=== PATIENT | female | born 1965 | race Caucasian/White ===

== ENCOUNTER 2017-05-27 21:25 | Emergency (ER) | payer BC ==
[2017-05-27 21:38] VITALS: BP 135/90
--- NOTE | 2017-05-27 22:21 | EDM.PDOC ---
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 Both procedures were performed at [facility]. About 2-3 months ago, the patient developed right breast pain, extending to her right neck, shoulder, and down her right upper extremity. This was made worse with various movements. Zehra Cortes is the patient's PCP, however, the patient also sees Dr. Garrett, an [employer] in [place]. The patient saw him on 04/29/2017. He referred the patient back to [facility]. The patient was then seen by Dr. Curry, a plastic surgeon, on 05/02/2017. Dr. Curyr felt that the patient's pain was due to the implants being placed underneath the pectoralis muscles, and he also felt there was a neuroma involved. He recommended surgery to replace the implants, replacing them over the pectoralis muscles, however, there was some delay in surgery due to a concern about hyperthyroidism. The patient states that her right neck, shoulder, and arm pain got worse about 2 weeks ago, especially if she were to bend forward. She saw a chiropractor, without relief. She spoke to Dr. Garrett on 05/10/2017, who ordered a MRI which the patient underwent on 05/11/2017, demonstrating a leaking right implant. The patient ultimately underwent replacement of the bilateral implants on 05/19/2017 at [facility]. She was discharged home on 05/21/2017 with prescriptions for Duricef and tramadol. She is scheduled to follow up on 07/25/2017 The patient states that both of the implants are of the same size, however, her left breast is larger. She is concerned about some ecchymosis to the anterior left breast, and about dark colored drainage from her left MATTHEW drain. She took photographs of her breast and sent them to Dr. Curry, who told her that he was concerned about a hematoma. He recommended that the patient come to the ED for an ultrasound to check for a hematoma, and if positive, the patient intends to drive to [facility] tomorrow to have the issue addressed. The patient is concerned that a hematoma could become infected, although she denies recent fever or purulent drainage. Treatments HEAD OF ICT: Reports: Acetaminophen Bilateral Breast Pain Score (Numeric/FACES): 6 - Related Data Allergies Allergy/AdvReac Type Severity Reaction Status Date / Time acetaminophen [From Percocet] Allergy Rash Verified 05/27/17 21:39 danazol Allergy Rash Verified 05/27/17 21:39 doxycycline Allergy Rash Verified 05/27/17 21:39 morphine Allergy Respiratory Verified 05/27/17 21:39 Distress oxycodone HCl [From Percocet] Allergy Rash Verified 05/27/17 21:39 Home Meds: Home Meds Acetaminophen [Tylenol Extra Strength] 500 mg PO Q6HR PRN 05/27/17 [History] Cefadroxil [Cefadroxil] 500 mg PO BID 05/27/17 [History] Diazepam [Valium] 5 mg PO QID 05/27/17 [History] Levothyroxine Sodium [Synthroid] 100 mcg PO ACBREAKFAST 05/27/17 [History] Sennosides/Docusate Sodium [Senna-Docusate Sodium] 1 each PO DAILY PRN 05/27/17 [History] traMADol [Ultram] 50 mg PO Q6H PRN 05/27/17 [History] Past Medical History EMERGENCY MEDICAL DISPATCHER History: Reports: Other (See Below) (pseudoangiomatous stromal hyperplasia (PASH)) Psychiatric History: Reports: Anxiety (untreated) Endocrine/Metabolic History: Reports: Hypothyroidism - Past Surgical History Female Surgical History: Reports: Breast Implant (bilateral 2005, revised ), Hysterectomy, Mastectomy, Oophorectomy Social & Family History - Family History Cardiac: Reports: Heart Failure, [place] - Tobacco Use Smoking Status *Q: Never Smoker Second Hand Smoke Exposure: No - Caffeine Use Caffeine Use: Reports: None Other Caffeine Use: rarely - Recreational Drug Use Recreational Drug Use: No ED ROS GENERAL - Review of Systems Review Of Systems: ROS reveals no pertinent complaints other than HPI. ED EXAM, GENERAL - Physical Exam Exam: See Below Exam Limited By: No Limitations General Appearance: Alert, WD/WN, No Apparent Distress Respiratory/Chest: Other (Surgical wounds bilateral breasts are clean, dy, and intact. Small amount of biliverdinous ecchymoses noted to the anterior left breast, and subtle depression to the lateral aspect of the left breast, suggesting underlying hematoma. No erythema or swelling to either breast. Approximately 1-2 ml dark liquefied hematoma present in the MATTHEW drain bulb.) Course - Vital Signs Last Recorded V/S: Last Vital Signs Temp 37.3 C 05/27/17 21:34 Pulse 84 05/27/17 21:34 Resp 18 05/27/17 21:34 BP 135/90 05/27/17 21:34 Pulse Ox 100 05/27/17 21:34 - Orders/Labs/Meds Orders: Active Orders 24 hr Category Date Time Status Breast Complete Lt [US] Stat Exams 05/27/17 22:11 Taken Meds: Medications Discontinued Medications Generic Name Dose Route Start Last Admin Trade Name Freq PRN Reason Stop Dose Admin Tramadol HCl 50 mg 05/27/17 22:25 05/27/17 22:29 Ultram PO 05/27/17 22:26 50 mg ONETIME ONE Administration - Re-Assessments/Exams Free Text/Narrative Re-Assessment/Exam: 05/27/17 22:12 The patient presents with a post bilateral breast reconstruction hematoma on the left. She states that the surgeon admissions manager rn at [facility] recommended that she come to the ED for an ultrasound to confirm a hematoma, and that if positive , that she would drive to [place] tomorrow to have it addressed. Clinically, the patient has a hematoma, and I will be very surprised if the ultrasound does not confirm that. The concern that I have, which I explained to the patient, is that, while certainly concerning to the patient, a postoperative hematoma is not an emergency, therefore an ultrasound to evaluate for it is not indicated from the ED. While it is true that a hematoma can get infected, there is no indication that the patient has an infection at this time - she does not report a history of fever or chills, is afebrile here in the ED, and while there is some mild ecchymosis to the anterior breast, there is no erythema or swelling suggestive of an infection. There is a small amount of dark liquefied blood in her MTATHEW drain, consistent with liquefaction of hematoma, but no purulence or even serosanguineous fluid. There is postoperative breast pain, for which the patient is taking Tramadol, but nothing inordinate. Indeed, the patient was offered pain medication, and initially declined. The patient stated that she would be willing to pay for the ultrasound [id number]. The patient was also asking about my checking for anemia and a thyroid level, but again, these would not be emergencies, therefore the patient did not push for those tests. 05/28/17 01:29 Significant delay in getting the ultrasound report, for reasons unclear. Ultrasound of the left breast is read by [facility] as: Multiple pockets of fluid abutting the left breast implant, the largest measuring 4.8 x 3.2 cm. These could represent multiple seromas or resolving hematomas. Infected fluid collections, due to an implant infection, are not excluded. Multiple hypoechoic, solid-appearing lesions, the largest measuring 2 x 1.8 cm. These could represent multiple inflammatory lymph nodes or fibroadenomas, given the appearance. Recommend further workup with mammography, on a nonemergent basis, as well as followup ultrasound for surveillance. 05/28/17 01:52 [facility] contacted at 01:32. Called back by Dr. Mcpherson, plastic surgeon admissions manager rn at [facility]. He stated that [facility] recommended that she follow-up on 05/30/2017, and that is still his advice. He does not recommend any changes in her current medications. 05/28/17 02:13 The above was discussed with the patient and her sister. She is considering flying to [place] to follow-up in the clinic on Tuesday. Departure - Departure Time of Disposition: 01:55 Disposition: Home, Self-Care 01 Condition: Good Clinical Impression: Postoperative hematoma of breast - Discharge Information Referrals: PCP,Not In Area [Primary Care Provider] - Forms: ED Department Discharge Additional Instructions: You were seen in the emergency room for evaluation of your left breast, following reconstructive surgery. Workup in the ER included an ultrasound of your left breast, confirming a postoperative hematoma. Your case was discussed with Dr. Mcpherson, Plastic Surgeon admissions manager rn at [facility]. He recommends that you continue to take your current medications as prescribed and follow-up in the clinic this coming 05/30/2017. If any other problems, please do not hesitate to return to the ER. - My Orders Last 24 Hours: My Active Orders 05/27/17 22:11 Breast Complete Lt [US] Stat - Assessment/Plan Last 24 Hours: My Active Orders 05/27/17 22:11 Breast Complete Lt [US] Stat
[2017-05-27] MEDS ORDERED: traMADol 50 MG Tab PO ONE (22:25)
--- NOTE | 2017-05-28 15:44 | US ---
Left breast ultrasound: Multiple real-time images were obtained of the left breast. Left breast prosthesis is seen. Multiple small hypoechoic areas are seen within the soft tissues around the breast prosthesis. Findings most likely represent small seromas from recent surgery. No larger hematoma is seen. Recommend repeat study in 2-3 months to make sure findings resolved. If more acute clinical symptoms develop, repeat ultrasound could be performed earlier. Impression: 1. Findings and recommendations as noted above. Diagnostic code #3 Agree with preliminary report issued by [facility] ([facility] preliminary report dictated on 05/28/17, 2:26 AM Central Time)
== END 2017-05-28 02:22 | disposition home or self-care (01) ==
LOC: JD.ED 21:25
DX: L76.32 Postprocedural hematoma of skin and subcutaneous tissue following other procedure (principal); T85.848A Pain due to other internal prosthetic devices, implants and grafts, initial encounter; E03.9 Hypothyroidism, unspecified; Z79.899 Other long term (current) drug therapy; Z88.5 Allergy status to narcotic agent; Z88.6 Allergy status to analgesic agent; Z88.1 Allergy status to other antibiotic agents
CPT/HCPCS: 76641; 99284; A9270

== ENCOUNTER 2020-02-08 17:04 | Emergency (ER) | payer BC ==
[2020-02-08 17:28] VITALS: BP 147/97; PULSE 67
[2020-02-08] MEDS ORDERED: Sodium Chloride 0.9% 10 ML Syringe FLUSH PRN (17:43)
--- NOTE | 2020-02-08 18:59 | EDM.PDOC ---
ED HPI GENERAL MEDICAL PROBLEM - General Chief Complaint: Chest Pain Stated Complaint: CHEST PAIN AND PRESSURE X 1 WEEK Time Seen by Provider: 02/08/20 17:27 Source of Information: Reports: Patient History Limitations: Reports: No Limitations - History of Present Illness INITIAL COMMENTS - FREE TEXT/NARRATIVE: The patient presents with chest pain. This has been an issue since before [place]. She has the pain in the left chest tonight and she has some indigestion. She says it comes and goes. She has some shortness of breath at times with it. She says to take a deep breath will make it worse at times. She has no swelling or pain in her legs. Two of her sisters of heart attacks. She did have a calcium score done and it was elevated. She saw Dr Kathy rubio iologist at [facility]. She did not need any heart cath. Some of her family members have recently tested positive for COVID. She has no symptoms such as fever, chills, cough, congestion, runny nose, abdominal pain, nausea or vomiting. She does not smoke. Onset: Gradual Duration: Week(s): Location: Reports: Chest Quality: Reports: Sharp Severity: Moderate Improves with: Reports: None Worsens with: Reports: None Associated Symptoms: Reports: Chest Pain, Shortness of Breath. Denies: Cough, Fever/Chills, Headaches, Nausea/Vomiting Left Chest Pain Score (Numeric/FACES): 5 - Related Data Allergies Allergy/AdvReac Type Severity Reaction Status Date / Time acetaminophen [From Percocet] Allergy Severe Rash Verified 02/08/20 17:37 danazol Allergy Severe Rash Verified 02/08/20 17:37 doxycycline Allergy Severe Rash Verified 02/08/20 17:37 morphine Allergy Severe Respiratory Verified 02/08/20 17:37 Distress oxycodone HCl [From Percocet] Allergy Severe Rash Verified 02/08/20 17:37 Home Meds: Home Meds Acetaminophen [Tylenol Extra Strength] 500 mg PO Q6HR PRN 05/27/17 [History] Levothyroxine Sodium [Synthroid] 125 mcg PO ACBREAKFAST 05/27/17 [History] Sennosides/Docusate Sodium [Senna-Docusate Sodium] 1 each PO DAILY PRN 05/27/17 [History] cefaDROXiL [Cefadroxil] 500 mg PO BID 05/27/17 [History] diazePAM [Valium.] 5 mg PO QID 05/27/17 [History] Past Medical History HEENT History: Reports: Other (See Below) Other HEENT History: septalplasty Cardiovascular History: Reports: Other (See Below) Other Cardiovascular History: heart palpitations Respiratory History: Reports: Pneumonia, Recurrent Genitourinary History: Reports: UTI, Recurrent HYDRAULIC LIFT DRIVER History: Reports: Endometriosis, Other (See Below) Other HYDRAULIC LIFT DRIVER History: PASH Neurological History: Reports: Concussion Psychiatric History: Reports: Anxiety Endocrine/Metabolic History: Reports: Hypothyroidism Hematologic History: Reports: Anticoagulation Therapy - Past Surgical History HEENT Surgical History: Reports: Other (See Below) Other HEENT Surgeries/Procedures: graves disease, surgery to left eye Female Surgical History: Reports: Breast Implant, Hysterectomy, Mastectomy, Oophorectomy Other Female Surgeries/Procedures: oophorectomy ; bilateral mastectomy Social & Family History - Family History Family Medical History: No Pertinent Family History Cardiac: Reports: Heart Failure, [place] - Tobacco Use Tobacco Use Status *Q: Never Tobacco User - Caffeine Use Caffeine Use: Reports: Coffee Other Caffeine Use: rarely - Recreational Drug Use Recreational Drug Use: No ED ROS GENERAL - Review of Systems Review Of Systems: See Below Constitutional: Reports: No Symptoms HEENT: Reports: No Symptoms Respiratory: Reports: Shortness of Breath Cardiovascular: Reports: Chest Pain Endocrine: Reports: No Symptoms GI/Abdominal: Reports: No Symptoms : Reports: No Symptoms Musculoskeletal: Reports: No Symptoms ED EXAM, GENERAL - Physical Exam Exam: See Below Exam Limited By: No Limitations General Appearance: Alert, No Apparent Distress Ears: Normal External Exam Nose: Normal Inspection Head: Atraumatic, Normocephalic Neck: Normal Inspection Respiratory/Chest: No Respiratory Distress, Lungs Clear, Normal Breath Sounds Cardiovascular: Regular Rate, Rhythm, No Edema, No Murmur GI/Abdominal: Soft, Non-Tender, No Organomegaly, No Mass Back Exam: Normal Inspection Extremities: Normal Inspection Neurological: Alert, Oriented, No Motor/Sensory Deficits #1 Interpretation EKG Date: 02/08/20 Time: 18:43 Rhythm: NSR Rate (Beats/Min): 60 [place]: Normal P-Wave: Present QRS: Normal ST-T: Normal QT: Normal Course - Vital Signs Last Recorded V/S: Last Vital Signs Temp 98.3 F 02/08/20 17:26 Pulse 67 02/08/20 17:26 Resp 20 02/08/20 17:26 BP 147/97 H 02/08/20 17:26 Pulse Ox 100 02/08/20 17:26 - Orders/Labs/Meds Orders: Active Orders 24 hr Category Date Time Status Cardiac Monitoring [RC] . DIRECTED Care 02/08/20 17:43 Active EKG Documentation Completion [RC] STAT Care 02/08/20 17:43 Active Peripheral IV Care [RC] . DIRECTED Care 02/08/20 17:43 Active Chest 1V Frontal [CR] Stat Exams 02/08/20 17:44 Taken D-DIMER QUANTITATIVE [COAG] Stat Lab 02/08/20 18:54 Received Sodium Chloride 0.9% [Saline Flush] Med 02/08/20 17:43 Active 10 ml FLUSH ASDIRECTED PRN Peripheral IV Insertion Adult [OM.PC] Stat Oth 02/08/20 17:43 Ordered Medication Orders Sodium Chloride (Saline Flush) 10 ml FLUSH ASDIRECTED PRN PRN Reason: Keep Vein Open Last Admin: 02/08/20 18:20 Dose: 10 ml Documented by: HARRY Labs: Laboratory Tests 02/08/20 02/08/20 02/08/20 Range/Units 18:13 18:15 18:15 WBC 6.22 (3.98-10.04) K/mm3 RBC 4.71 (3.98-5.22) M/mm3 Hgb 14.3 (11.2-15.7) gm/dl Hct 45.3 H (34.1-44.9) % MCV 96.2 H D (79.4-94.8) fl MCH 30.4 (25.6-32.2) pg MCHC 31.6 L (32.2-35.5) g/dl RDW Std Deviation 45.3 (36.4-46.3) fL Plt Count 210 (182-369) K/mm3 MPV 11.6 (9.4-12.3) fl Neut % (Auto) 56.3 (34.0-71.1) % Lymph % (Auto) 37.8 (19.3-51.7) % Gage % (Auto) 4.2 L (4.7-12.5) % Eos % (Auto) 1.0 (0.7-5.8) Baso % (Auto) 0.5 (0.1-1.2) % Neut # (Auto) 3.51 (1.56-6.13) K/mm3 Lymph # (Auto) 2.35 (1.18-3.74) K/mm3 Gage # (Auto) 0.26 (0.24-0.36) K/mm3 Eos # (Auto) 0.06 (0.04-0.36) K/mm3 Baso # (Auto) 0.03 (0.01-0.08) K/mm3 Manual Slide Review Normal smear Sodium 140 (136-145) mEq/L Potassium 3.6 (3.5-5.1) mEq/L Chloride 104 (98-107) mEq/L Carbon Dioxide 26 (21-32) mEq/L Anion Gap 13.6 (5-15) BUN 18 (7-18) mg/dL Creatinine 0.9 (0.55-1.02) mg/dL Est Cr Clr Drug Dosing 60.99 mL/min Estimated GFR (MDRD) > 60 (>60) mL/min BUN/Creatinine Ratio 20.0 H (14-18) Glucose 87 (74-106) mg/dL Calcium 9.4 (8.5-10.1) mg/dL Total Bilirubin 0.4 (0.2-1.0) mg/dL AST 16 (15-37) U/L ALT 21 (14-59) U/L Alkaline Phosphatase 81 (46-116) U/L Troponin I < 0.017 (0.00-0.056) ng/mL Total Protein 7.1 (6.4-8.2) g/dl Albumin 4.0 (3.4-5.0) g/dl Globulin 3.1 gm/dL Albumin/Globulin Ratio 1.3 (1-2) Influenza Type A RNA Negative (NEGATIVE) Influenza Type B RNA Negative (NEGATIVE) SARS-CoV-2 RNA (BRANDIN) Negative (NEGATIVE) Meds: Medications Generic Name Dose Route Start Last Admin Trade Name Freq PRN Reason Stop Dose Admin Sodium Chloride 10 ml 02/08/20 17:43 02/08/20 18:20 Saline Flush FLUSH 10 ml ASDIRECTED PRN Administration Keep Vein Open - Re-Assessments/Exams Free Text/Narrative Re-Assessment/Exam: 02/08/20 19:01 I ordered an IV saline lock, CXR, EKG, and labs. She did not want any aspirin at this time. Her EKG shows a NSR with no acute changes. Her CXR looks good. Her CBC and CMP look good. Her troponin is negative. Her D-dimer is negative. Her COVID 19 was negative. I feel this is GI related. I will have her take pepcid daily for 2 weeks. Departure - Departure Time of Disposition: 19:20 Disposition: Home, Self-Care 01 Condition: Good Clinical Impression: Atypical chest pain GERD (gastroesophageal reflux disease) Qualifiers: Esophagitis presence: esophagitis presence not specified Qualified Code(s): K21.9 - Gastro-esophageal reflux disease without esophagitis Referrals: Nicholas Garrett MD [Primary Care Provider] - 1 Week Forms: ED Department Discharge Additional Instructions: Take pantoprozole daily for 2 weeks and pepcid daily for a week. Drink plenty of fluids. You can also try some maalox. Follow up with your doctor within a week. Please return if you are worse. Sepsis Event Note (ED) - Evaluation Sepsis Screening Result: No Definite Risk - Focused Exam Vital Signs: Vital Signs Temp Pulse Resp BP Pulse Ox 02/08/20 17:26 98.3 F 67 20 147/97 H 100 - My Orders Last 24 Hours: My Active Orders 02/08/20 17:43 Cardiac Monitoring [RC] . DIRECTED EKG Documentation Completion [RC] STAT Peripheral IV Care [RC] . DIRECTED Sodium Chloride 0.9% [Saline Flush] 10 ml FLUSH ASDIRECTED PRN Peripheral IV Insertion Adult [OM.PC] Stat 02/08/20 17:44 Chest 1V Frontal [CR] Stat 02/08/20 18:54 D-DIMER QUANTITATIVE [COAG] Stat - Assessment/Plan Last 24 Hours: My Active Orders 02/08/20 17:43 Cardiac Monitoring [RC] . DIRECTED EKG Documentation Completion [RC] STAT Peripheral IV Care [RC] . DIRECTED Sodium Chloride 0.9% [Saline Flush] 10 ml FLUSH ASDIRECTED PRN Peripheral IV Insertion Adult [OM.PC] Stat 02/08/20 17:44 Chest 1V Frontal [CR] Stat 02/08/20 18:54 D-DIMER QUANTITATIVE [COAG] Stat
[2020-02-08 19:03] LABS: CORONAVIRUS COVID-19 NAA NEGATIVE (NEGATIVE)
--- NOTE | 2020-02-09 09:46 | CR ---
Chest: Portable view of the chest was obtained. Comparison: Prior chest x-rays of 03/18/16 and 03/04/16. Findings: Heart size and mediastinum: Within normal limits for portable technique. No mediastinal mass is seen. Lungs: Clear with no acute parenchymal process. No pleural effusion is seen. Osseous: Minimal scoliosis is noted. No acute osseous findings are seen. Limited abdomen: Small surgical clip is seen in the upper abdomen compatible with previous cholecystectomy. Impression: 1. Nothing acute is seen on single chest x-ray. Diagnostic code #2 I agree with preliminary report from [facility], finalized on 02/08/20, 8:39 PM [employer] DEVELOPER
== END 2020-02-08 19:25 | disposition home or self-care (01) ==
LOC: JD.ED 17:04
DX: K21.9 Gastro-esophageal reflux disease without esophagitis (principal); E03.9 Hypothyroidism, unspecified; Z79.01 Long term (current) use of anticoagulants; Z88.8 Allergy status to other drugs, medicaments and biological substances; Z88.1 Allergy status to other antibiotic agents; Z88.5 Allergy status to narcotic agent; Z88.6 Allergy status to analgesic agent; Z79.899 Other long term (current) drug therapy
CPT/HCPCS: 0240U; 36415; 71045; 71045-26; 80053; 84443; 84484; 85025; 85379; 93005; 93010; 99284; 99285-25

== ENCOUNTER 2020-10-22 14:51 | Emergency (ER) | payer BC ==
[2020-10-22 15:06] VITALS: BP 165/113; PULSE 70
--- NOTE | 2020-10-22 15:51 | EDM.PDOC ---
ED HPI GENERAL MEDICAL PROBLEM - General Chief Complaint: Respiratory Problem Stated Complaint: SOB Time Seen by Provider: 10/22/20 15:31 Source of Information: Reports: Patient History Limitations: Reports: No Limitations, Respiratory Distress (Kidney good rest. Able to speak in 6 or 7 words at a time) - History of Present Illness INITIAL COMMENTS - FREE TEXT/NARRATIVE: 55-year-old female attends the ED due to worsening dyspnea. No significant increase in cough although she will bring up some green-colored sputum first thing in the morning. No fever or chills. Patient has a history of chronic dyspnea of unclear etiology. She has never been a smoker. She has been worked up thoroughly at the [facility] on multiple occasions with no positive findings as the cause of her dyspnea. They have ruled out myasthenia gravis. They feel that she is suffering from adrenal insufficiency and attempt to wean her off prednisone failed when she was down to 2.5 mg daily she was still showing signs of adrenal insufficiency. She is currently on 5 mg of hydrocortisone daily. She has not taken it today. Patient does recognize occasional wheezing. She has used her son's nebulizer machine with albuterol on 2 occasions without any real relief of her dyspnea. She is not been told that she has a cardiomyopathy and cannot remember what her last ejection fraction was. She is hypothyroid and takes levothyroxine 125mcg daily. Blood pressure tends to run very low. At present she has not experienced any nausea vomiting or diarrhea. Patient takes Prilosec 20 mg daily and Tylenol as needed. Onset: Gradual Onset Date: 10/19/20 (Gradual worsening of dyspnea over the last 3 to 4 days.) Duration: Day(s):, Constant (Tachypnea even at rest worsened by exertion.), Getting Worse Location: Reports: Chest (Shortness of breath at rest worsened by minimal exertion.) Quality: Reports: Other (Chief complaint is dyspnea at rest worsened by minimal exertion.) Severity: Severe Improves with: Reports: Rest Worsens with: Reports: Movement (Rest helps a bit. Dyspnea is made worse by movement) Context: Denies: Activity, Exercise, Lifting, Sick Contact, Trauma, Other Associated Symptoms: Reports: Cough, cough w sputum (Has brought up some mild green sputum the last 3 mornings.), Loss of Appetite (Decreased appetite with intermittent upper abdominal cramping pain.), Malaise, Nausea/Vomiting (Transient nausea), Shortness of Breath, Weakness. Denies: Confusion, Chest Pain, Diaphoresis ( No hemoptysis), Fever/Chills, Headaches, Rash, Seizure, Syncope Treatments [employer]: Reports: Acetaminophen (Generalized.) - Related Data Allergies Allergy/AdvReac Type Severity Reaction Status Date / Time acetaminophen [From Percocet] Allergy Severe Rash Verified 10/22/20 15:06 danazol Allergy Severe Rash Verified 10/22/20 15:06 doxycycline Allergy Severe Rash Verified 10/22/20 15:06 morphine Allergy Severe Respiratory Verified 10/22/20 15:06 Distress oxycodone HCl [From Percocet] Allergy Severe Rash Verified 10/22/20 15:06 Home Meds: Home Meds Acetaminophen [Tylenol Extra Strength] 500 mg PO Q6HR PRN 05/27/17 [History] Levothyroxine Sodium [Synthroid] 125 mcg PO ACBREAKFAST 05/27/17 [History] Albuterol [Proventil Neb Soln] 2.5 mg NEB Q6HRRT #40 cup 10/22/20 [Rx] Azithromycin [Zithromax] 250 mg PO DAILY #10 tablet 10/22/20 [Rx] Omeprazole 20 mg PO DAILY 10/22/20 [History] predniSONE [Prednisone] 5 mg PO DAILY 10/22/20 [History] Past Medical History HEENT History: Reports: Other (See Below) Other HEENT History: septalplasty Cardiovascular History: Reports: Other (See Below) Other Cardiovascular History: heart palpitations Respiratory History: Reports: Pneumonia, Recurrent Genitourinary History: Reports: UTI, Recurrent LINE PATROLMAN History: Reports: Endometriosis, Other (See Below) Other LINE PATROLMAN History: PASH Neurological History: Reports: Concussion Psychiatric History: Reports: Anxiety Endocrine/Metabolic History: Reports: Hypothyroidism Hematologic History: Reports: Anticoagulation Therapy - Past Surgical History HEENT Surgical History: Reports: Other (See Below) Other HEENT Surgeries/Procedures: graves disease, surgery to left eye Female Surgical History: Reports: Breast Implant, Hysterectomy, Mastectomy, Oophorectomy Other Female Surgeries/Procedures: oophorectomy ; bilateral mastectomy Social & Family History - Family History Family Medical History: No Pertinent Family History Cardiac: Reports: Heart Failure, [place] - Tobacco Use Tobacco Use Status *Q: Never Tobacco User Second Hand Smoke Exposure: No - Caffeine Use Caffeine Use: Reports: Coffee Other Caffeine Use: rarely - Recreational Drug Use Recreational Drug Use: No - Living Situation & Occupation Living situation: Reports: Occupation: Employed (Self-employed) ED ROS GENERAL - Review of Systems Review Of Systems: See Below Constitutional: Reports: Malaise, Weakness, Fatigue, Decreased Appetite. Denies: Fever, Chills HEENT: Reports: Glasses (For reading) Respiratory: Reports: Shortness of Breath, Wheezing, Cough, Sputum. Denies: Pleuritic Chest Pain, Hemoptysis Cardiovascular: Reports: Blood Pressure Problem, Dyspnea on Exertion, Edema (Does have some edema both lower extremities. She does take a diuretic on a as needed basis. It is not listed in her med list.), Lightheadedness, Orthopnea. Denies: Chest Pain (Occasional greenish sputum first noted first things in the morning.), Claudication (Has been higher lately.), Palpitations (Chronically) Endocrine: Reports: Fatigue GI/Abdominal: Reports: Abdominal Pain (Chronic upper abdominal cramping pain. Seems to be made worse by eating.), Decreased Appetite, Distension, Flatus (Feels mildly bloated and distended.), Nausea. Denies: Anorexia, Constipation, Diarrhea, Difficulty Swallowing, Hematemesis, Hematochezia, Melena, Vomiting (Associate with abdominal discomfort.), Other : Reports: Frequency (Most noted if she takes her diuretic.) Musculoskeletal: Reports: Neck Pain (Occasional.), Back Pain Skin: Reports: No Symptoms Neurological: Reports: Dizziness, Headache, Trouble Speaking (Due to dyspnea. Due to dyspnea.), Difficulty Walking, Weakness. Denies: Confusion, Syncope Psychiatric: Reports: Anxiety Hematologic/Lymphatic: Reports: No Symptoms Immunologic: Reports: No Symptoms ED EXAM, GENERAL - Physical Exam Exam: See Below Exam Limited By: Respiratory Distress (She speaks in 6-7 word sentences and is b reathing in between words.) General Appearance: Alert, WD/WN, Moderate Distress, Other (Tachypnea at rest. Temperature is 36.6 degrees and she does not feel warm palpation heart rate was 70 and sinus with respiratory rate of 20 to 24/min with O2 sats 100% room air. BP initially was elevated 165 113. It did come down to 144/94 while I was in the room.) Eye Exam: Bilateral Eye: Normal Inspection (No blepharal pallor or scleral icterus.), PERRL Ears: Normal TMs Nose: Other (Patient has significant swelling of the both the medial and superior turbinates in her right nares with them just about touching the midline septum. She does have a small nasal polyp on the left side which is contributing to her sense of dyspnea.) Throat/Mouth: Normal Inspection, Normal Lips, Normal Teeth, Normal Oropharynx, Other (Tongue is mildly dry and coated.) Head: Atraumatic, Normocephalic, Other Neck: Normal Inspection, Supple, Non-Tender, Full Range of Motion. No: Carotid Bruit, Lymphadenopathy (L), Lymphadenopathy (R) Respiratory/Chest: No Accessory Muscle Use, Respiratory Distress (Tachypnea at rest 20 to 24 breaths/min. Cannot speak 6 words at a time without taking a breath.), Rales (Crackles and few scattered rales both lung bases.). No: Lungs Clear, Normal Breath Sounds, Decreased Breath Sounds, Rhonchi, Wheezing, Pleural Rub Cardiovascular: Normal Peripheral Pulses, Regular Rate, Rhythm, No Edema, No Gallop, No Murmur, No Rub Peripheral Pulses: 2+: Posterior Tibial (L), Posterior Tibial (R), Dorsalis Pedis (L), Dorsalis Pedis (R), 3+: Carotid (L), Carotid (R) GI/Abdominal: Normal Bowel Sounds, Soft, Non-Tender, No Organomegaly, No Distention, No Abnormal Bruit, Distended (Mildly tympany to percussion particu lar upper abdomen combined with aerophagia.) Back Exam: Normal Inspection, Full Range of Motion. No: CVA Tenderness (L), CVA Tenderness (R) Extremities: Normal Inspection, Normal Range of Motion, Non-Tender, Pedal Edema (Trace pedal edema at the ankles.) Neurological: Alert, Oriented, CN II-XII Intact, Normal Cognition, No Motor/Sensory Deficits Psychiatric: Normal Affect, Normal Mood Skin Exam: Warm, Dry, Intact, Normal Color, No Rash #1 Interpretation EKG Date: 10/22/20 Time: 16:17 Rhythm: NSR Rate (Beats/Min): 62 [place]: Normal P-Wave: Present QRS: Other (Mildly decreased voltage limb leads) ST-T: Normal QT: Normal EKG Interpretation Comments: Normal ECG Course - Vital Signs Last Recorded V/S: Last Vital Signs Temp 36.6 C 10/22/20 15:01 Pulse 70 10/22/20 15:01 Resp 20 10/22/20 15:01 BP 165/113 H 10/22/20 15:01 Pulse Ox 99 10/22/20 16:08 - Orders/Labs/Meds Orders: Active Orders 24 hr Category Date Time Status CORTISOL [REF] Stat Lab 10/22/20 16:04 Received Labs: Laboratory Tests 10/22/20 10/22/20 10/22/20 Range/Units 16:04 16:04 16:04 WBC 5.58 (3.98-10.04) K/mm3 RBC 4.76 (3.98-5.22) M/mm3 Hgb 14.6 (11.2-15.7) gm/dl Hct 45.1 H (34.1-44.9) % MCV 94.7 (79.4-94.8) fl MCH 30.7 (25.6-32.2) pg MCHC 32.4 (32.2-35.5) g/dl RDW Std Deviation 45.5 (36.4-46.3) fL Plt Count 266 (182-369) K/mm3 MPV 10.7 (9.4-12.3) fl Neut % (Auto) 43.0 (34.0-71.1) % Lymph % (Auto) 46.6 (19.3-51.7) % [place] % (Auto) 7.2 (4.7-12.5) % Eos % (Auto) 3.0 (0.7-5.8) Baso % (Auto) 0.2 (0.1-1.2) % Neut # (Auto) 2.40 (1.56-6.13) K/mm3 Lymph # (Auto) 2.60 (1.18-3.74) K/mm3 [place] # (Auto) 0.40 H (0.24-0.36) K/mm3 Eos # (Auto) 0.17 (0.04-0.36) K/mm3 Baso # (Auto) 0.01 (0.01-0.08) K/mm3 ESR (0-20) mm/hr PT 10.3 (9.7-12.0) SECONDS INR 0.96 APTT 25.1 (21.7-31.4) SECONDS Puncture Site ABG pH (7.35-7.45) ABG pCO2 (35.0-45.0) mmHg ABG pO2 (80.0-100.0) mmHg ABG HCO3 (22.0-26.0) meq/L ABG O2 Saturation (96.0-97.0) % ABG Base Excess (-2-2.0) Isidro Test O2 Delivery Device Sodium 147 H (136-145) mEq/L Potassium 3.6 (3.5-5.1) mEq/L Chloride 108 H (98-107) mEq/L Carbon Dioxide 32 (21-32) mEq/L Anion Gap 10.6 (5-15) BUN 17 (7-18) mg/dL Creatinine 1.0 (0.55-1.02) mg/dL Est Cr Clr Drug Dosing 54.24 mL/min Estimated GFR (MDRD) 57 (>60) mL/min BUN/Creatinine Ratio 17.0 (14-18) Glucose 87 (70-99) mg/dL Calcium 9.2 (8.5-10.1) mg/dL Magnesium 2.1 (1.8-2.4) mg/dL Total Bilirubin 0.4 (0.2-1.0) mg/dL AST 17 (15-37) U/L ALT 21 (14-59) U/L Alkaline Phosphatase 72 (46-116) U/L Troponin I < 0.017 (0.00-0.056) ng/mL C-Reactive Protein <0.2 (<1.0) mg/dL NT-Pro-B Natriuret Pep (0-125) pg/mL Total Protein 6.9 (6.4-8.2) g/dl Albumin 3.8 (3.4-5.0) g/dl Globulin 3.1 gm/dL Albumin/Globulin Ratio 1.2 (1-2) Lipase 138 (73-393) U/L TSH 3rd Generation (0.358-3.74) uIU/mL 10/22/20 10/22/20 10/22/20 Range/Units 16:04 16:04 16:04 WBC (3.98-10.04) K/mm3 RBC (3.98-5.22) M/mm3 Hgb (11.2-15.7) gm/dl Hct (34.1-44.9) % MCV (79.4-94.8) fl MCH (25.6-32.2) pg MCHC (32.2-35.5) g/dl RDW Std Deviation (36.4-46.3) fL Plt Count (182-369) K/mm3 MPV (9.4-12.3) fl Neut % (Auto) (34.0-71.1) % Lymph % (Auto) (19.3-51.7) % [place] % (Auto) (4.7-12.5) % Eos % (Auto) (0.7-5.8) Baso % (Auto) (0.1-1.2) % Neut # (Auto) (1.56-6.13) K/mm3 Lymph # (Auto) (1.18-3.74) K/mm3 [place] # (Auto) (0.24-0.36) K/mm3 Eos # (Auto) (0.04-0.36) K/mm3 Baso # (Auto) (0.01-0.08) K/mm3 ESR 3 (0-20) mm/hr PT (9.7-12.0) SECONDS INR APTT (21.7-31.4) SECONDS Puncture Site ABG pH (7.35-7.45) ABG pCO2 (35.0-45.0) mmHg ABG pO2 (80.0-100.0) mmHg ABG HCO3 (22.0-26.0) meq/L ABG O2 Saturation (96.0-97.0) % ABG Base Excess (-2-2.0) Isidro Test O2 Delivery Device Sodium (136-145) mEq/L Potassium (3.5-5.1) mEq/L Chloride (98-107) mEq/L Carbon Dioxide (21-32) mEq/L Anion Gap (5-15) BUN (7-18) mg/dL Creatinine (0.55-1.02) mg/dL Est Cr Clr Drug Dosing mL/min Estimated GFR (MDRD) (>60) mL/min BUN/Creatinine Ratio (14-18) Glucose (70-99) mg/dL Calcium (8.5-10.1) mg/dL Magnesium (1.8-2.4) mg/dL Total Bilirubin (0.2-1.0) mg/dL AST (15-37) U/L ALT (14-59) U/L Alkaline Phosphatase (46-116) U/L Troponin I (0.00-0.056) ng/mL C-Reactive Protein (<1.0) mg/dL NT-Pro-B Natriuret Pep 15 (0-125) pg/mL Total Protein (6.4-8.2) g/dl Albumin (3.4-5.0) g/dl Globulin gm/dL Albumin/Globulin Ratio (1-2) Lipase (73-393) U/L TSH 3rd Generation 3.538 (0.358-3.74) uIU/mL 10/22/20 Range/Units 16:30 WBC (3.98-10.04) K/mm3 RBC (3.98-5.22) M/mm3 Hgb (11.2-15.7) gm/dl Hct (34.1-44.9) % MCV (79.4-94.8) fl MCH (25.6-32.2) pg MCHC (32.2-35.5) g/dl RDW Std Deviation (36.4-46.3) fL Plt Count (182-369) K/mm3 MPV (9.4-12.3) fl Neut % (Auto) (34.0-71.1) % Lymph % (Auto) (19.3-51.7) % [place] % (Auto) (4.7-12.5) % Eos % (Auto) (0.7-5.8) Baso % (Auto) (0.1-1.2) % Neut # (Auto) (1.56-6.13) K/mm3 Lymph # (Auto) (1.18-3.74) K/mm3 [place] # (Auto) (0.24-0.36) K/mm3 Eos # (Auto) (0.04-0.36) K/mm3 Baso # (Auto) (0.01-0.08) K/mm3 ESR (0-20) mm/hr PT (9.7-12.0) SECONDS INR APTT (21.7-31.4) SECONDS Puncture Site Lt radial ABG pH 7.42 (7.35-7.45) ABG pCO2 43.8 (35.0-45.0) mmHg ABG pO2 62.0 L (80.0-100.0) mmHg ABG HCO3 27.5 H (22.0-26.0) meq/L ABG O2 Saturation 92.6 L (96.0-97.0) % ABG Base Excess 3.0 H (-2-2.0) Isidro Test Positive O2 Delivery Device Room air Sodium (136-145) mEq/L Potassium (3.5-5.1) mEq/L Chloride (98-107) mEq/L Carbon Dioxide (21-32) mEq/L Anion Gap (5-15) BUN (7-18) mg/dL Creatinine (0.55-1.02) mg/dL Est Cr Clr Drug Dosing mL/min Estimated GFR (MDRD) (>60) mL/min BUN/Creatinine Ratio (14-18) Glucose (70-99) mg/dL Calcium (8.5-10.1) mg/dL Magnesium (1.8-2.4) mg/dL Total Bilirubin (0.2-1.0) mg/dL AST (15-37) U/L ALT (14-59) U/L Alkaline Phosphatase (46-116) U/L Troponin I (0.00-0.056) ng/mL C-Reactive Protein (<1.0) mg/dL NT-Pro-B Natriuret Pep (0-125) pg/mL Total Protein (6.4-8.2) g/dl Albumin (3.4-5.0) g/dl Globulin gm/dL Albumin/Globulin Ratio (1-2) Lipase (73-393) U/L TSH 3rd Generation (0.358-3.74) uIU/mL Meds: Medications Discontinued Medications Generic Name Dose Route Start Last Admin Trade Name Freq PRN Reason Stop Dose Admin Albuterol/Ipratropium 3 ml 10/22/20 16:08 10/22/20 16:19 Albuterol/Ipratropium 3.0-0.5 Mg/3 Ml Neb Soln NEB 3 ml Q4H PRN Administration Shortness Of Breath/wheezing - Radiology Interpretation Free Text/Narrative:: 55-year-old female presents to the ED with chronic problems with dyspnea or tachypnea on minimal exertion and tachypnea at rest. She has been ill for many years. She has been worked up at the [facility] on multiple occasions with no definitive diagnosis being made. In particular a myasthenia gravis has been ruled out. She is a never smoker. She has been on high doses of steroids for many years and is considered now to be adrenal insufficient. She takes 5 mg of hydrocortisone daily. She has not taken it yet today. She has no symptoms in this regard i.e. hypotension, feeling faint or having diarrhea. She has tried home nebulizer treatments with albuterol without any relief of her dyspnea. She claims she is wheezing at times. This was not evident on my exam. She does have a few crackles in both lung bases. She cannot answer me as to what her ejection fraction was and whether or not she has an underlying cardiomyopathy. Complains of diffuse upper abdominal discomfort mostly cramping in nature made worse by eating. No diarrhea. O2 sats 100% on room air. She was told once that her O2 saturations did not correlate with her ABGs which showed her PO2 to be 57 and her pulse oximeter was reading in the 90s. And I suspect this was a venous blood sample. Plan she will have a chest x-ray and a KUB. ABG as well. Saline lock. Routine labs to be obtained. I will send off a serum cortisol level but is likely to be low since she is steroid dependent for many years. - Re-Assessments/Exams Free Text/Narrative Re-Assessment/Exam: 10/22/20 17:30: Chest x-ray done portably is essentially within normal limits. Heart shadow is within normal limits. Mediastinum is normal. Lungs are clear without any infiltrates. No pleural effusion no pneumothorax. Surgical clips is in the right upper quadrant in the abdomen, with cholecystectomy .X-ray of the abdomen reveals marked increased stool throughout the entire right hemicolon and most of the transverse colon. There are also a few dilated loops of small bowel mainly in the mid and upper left quadrant of the abdomen. This would explain her intermittent strong crampy or colicky abdominal pain intermittently. Multiple phleboliths are present in the pelvis. Mild joint space narrowing is appreciated superiorly within both hip joints. 10/22/20 18:08 White count is normal at 5.58. The differential shows 43% neutrophils and 46.6% lymphocytes a right shift suggesting viral infection. Hemoglobin is 14.6 with hematocrit of 45.1. Platelet count 266,000. PT is 10.3 with an INR of 0.96. PTT is 25.1. Her ABGs revealed a pH of 7.42 and PCO2 of 43.8. PO2 is low at 62.0. Bicarb is 27.5 and O2 saturations were 92.6 which correlate with her pulse oximeter. Sodium was 147 with a potassium of 3.6. Chloride 108 with a bicarb of 32. Anion gap is 10.6. BUN is 17 with a creatinine of 1.0 and a GFR at 57. Glucose is 87 calcium is 9.2. Magnesium is 2.1. Liver function is normal. Troponin I is less than 0.017. C-reactive protein less than 0.2. BNP is 15 . Total protein is 6.9 with an albumin fraction of 3.8. Serum lipase normal at 138 TSH at 3.53 is normal. Current blood pressure is 167/77. O2 sats are 98% on room air. 10/22/20 18:50: Findings is discussed at length with the patient. I spent nearly half an hour in her room going through the lab results. There is no doubt that she is hypoxic and as a result tachypneic to maintain her O2 sats in a partial pressure of oxygen of 62. The reason for this is unclear. It is unclear whether there is ever been a central nervous system source identified. She apparently does wear CPAP machine but infrequently either due to ill fitting mask or side effects of marked edema of her eyelids. She wished me to fill her albuterol nebs which I we will do 2.5 mg per 3 mils 4 times daily as needed. She does not seem to have an obstructive component to her lung disease and this treatment is unlikely to be useful. We will increase her prednisone to 20 mg daily for the next 4 days and then decrease every 4 days x 5 mg to get back to 5 mg once daily. I suspect her adrenal insufficiency is secondary to chronic steroid use and never being able to completely wean from corticosteroids before feeling so apprehensive without them. Patient needs to follow-up with a harmonica maker either in [facility] or the [facility]. It is unclear whether or not a firm diagnosis is ever been identified as a cause of her pulmonary disorder. She has MiraLAX powder and prefers to use this to relieve constipation. She states she got quite ill from using Citroma in the past. Advised 5 scoops of MiraLAX powder mixed with 20 ounces of fluid of choice by mouth once and then take 17 g or 1 scoop daily to provide constipation relief. She has 20 mg prednisone tablets at home. I am going to place her on Zithromax to 50 mg once daily for 10 days for bronchitis due to reported dark green sputum production most commonly in the mornings. Patient has significant allergic rhinitis but does not feel that Flonase or any nasal corticosteroids have helped much in the past. Departure - Departure Time of Disposition: 19:06 Disposition: Home, Self-Care 01 Condition: Fair Clinical Impression: Dyspnea and respiratory abnormalities, Tachypnea, Steroid dependence, Bronchitis, Constipation by delayed colonic transit - Discharge Information *PRESCRIPTION DRUG MONITORING PROGRAM REVIEWED*: Not Applicable *COPY OF PRESCRIPTION DRUG MONITORING REPORT IN PATIENT SHELL: Not Applicable Prescriptions: Albuterol [Proventil Neb Soln] 2.5 mg NEB Q6HRRT #40 cup Azithromycin [Zithromax] 250 mg PO DAILY #10 tablet Instructions: Constipation, Adult, Upper Respiratory Infection, Adult, [id number] Referrals: PCP,Not In Area [Primary Care Provider] - Forms: ED Department Discharge Additional Instructions: Evaluation in the emergency room today in regards to increased work of breathing to maintain O2 saturation of 97%. Blood gases reveal your blood oxygen level to be 62% and O2 saturations of 92.6 percent. These gases were done on room air. This shows that you are working hard to breathe due to underlying lung disease which is not yet been diagnosed or definitively clarified. This makes it difficult to opt for a definitive treatment plan in the absence of a concrete diagnosis. I would encourage you to arrange for further consultation with pulmonology services in [place] or the [facility] again to see if a diagnosis can be confirmed so that a definitive treatment plan can be organized. At this time I would suggest increasing her prednisone to 20 mg tonight since she did not ricci e any prednisone today. I would suggest 20 mg every morning for another 3 days starting tomorrow then reducing it to 15 mg daily in the morning for 4 days then reducing it to 10 mg in the morning for 4 days and then going back to 5 mg once daily in the morning. I would suggest antibiotic Zithromax to 50 mg once daily for the next 10 days for bronchitis due to coughed up secretions being greenish in color. In regards to constipation identified on x-ray of the abdomen today suggest taking 5 scoops of MiraLAX powder tonight with 20 ounces of beverage of choice or water. This will take 3 to 4 hours to start to work and should provide some relief of constipation over the next 4 to 12 hours. I would then suggest taking 1 scoop daily to prevent constipation from occurring. May use furosemide or water pill as needed for fluid retention in your legs. This is usually taken first thing in the morning and I would tell you to step on the scale daily and if you gain more than 1 pound in a day I would take the pill that day. As we discussed you do need to find a pulmonology or lung specialist either in [place] or [place] whom can manage your lung needs outside of [facility]. Your blood pressure in the emergency room does remain mildly elevated on the systolic or top number of the blood pressure. This is ranging anywhere from 145 to 170. It is elevated partially by increased adrenaline in your bloodstream helping you breathe faster to maintain your current oxygen level. It is not high enough to be worrisome for stroke but if it continues to be elevated you may have to be on a blood pressure medication to help lower the top number. I would not suggest a blood pressure medication at this time Sepsis Event Note (ED) - Focused Exam Vital Signs: Vital Signs Temp Pulse Resp BP Pulse Ox Pulse Ox 10/22/20 16:08 99 10/22/20 15:01 36.6 C 70 20 165/113 H 100 - My Orders Last 24 Hours: My Active Orders 10/22/20 16:04 CORTISOL [REF] Stat - Assessment/Plan Last 24 Hours: My Active Orders 10/22/20 16:04 CORTISOL [REF] Stat
[2020-10-22] MEDS ORDERED: Albuterol/Ipratropium 3.0-0.5 MG/3 ML Neb Soln NEB PRN (16:08)
--- NOTE | 2020-10-22 19:49 | CR ---
Chest: Portable view of the chest was obtained. Comparison: Prior chest x-ray of 02/08/20. Heart size and mediastinum are within normal limits for portable technique. Lungs are clear with no acute parenchymal change. Surgical clips are seen within the upper right abdomen. Slight scoliosis is noted within the spine. Impression: 1. Incidental findings. 2. Nothing acute is seen on portable chest x-ray. Diagnostic code #2
--- NOTE | 2020-10-22 19:50 | CR ---
Abdomen: Supine view of the abdomen was obtained. Comparison: No prior abdominal x-ray, previous CT abdomen and pelvis study 09/15/12. Multiple phleboliths are seen within the pelvis. Stool is noted within the right and transverse colon. Bowel gas pattern is within normal limits. Mild joint space narrowing is seen superiorly within both hips. Impression: 1. Findings believed to be incidental as described above. 2. Nothing acute is appreciated. Diagnostic code #2
== END 2020-10-22 19:35 | disposition home or self-care (01) ==
LOC: JD.ED 14:51
DX: J40 Bronchitis, not specified as acute or chronic (principal); K59.01 Slow transit constipation; F55.3 Abuse of steroids or hormones; E03.9 Hypothyroidism, unspecified; R06.82 Tachypnea, not elsewhere classified; Z88.5 Allergy status to narcotic agent; Z88.1 Allergy status to other antibiotic agents; Z79.899 Other long term (current) drug therapy
CPT/HCPCS: 36415; 36600; 71045; 71045-26; 74018; 74018-26; 80053; 82533; 82803; 83690; 83735; 83880; 84443; 84484; 85025; 85610; 85652; 85730; 86140; 93005; 93010; 94640; 99284; 99285-25; J7620-GY

== ENCOUNTER 2023-03-21 13:30 | Emergency (ER) | payer BC ==
[2023-03-21 13:51] VITALS: PULSE 85
[2023-03-21] MEDS ORDERED: Aspirin 81 MG Tab.Chew PO ONE (14:05)
[2023-03-21] MEDS ORDERED: Sodium Chloride 0.9% 10 ML Syringe FLUSH PRN (14:05)
[2023-03-21] MEDS ORDERED: Aspirin 81 MG Tab.Chew ONE (14:19)
[2023-03-21] MEDS: Nitroglycerin 0.4 MG Tab.SL SL PRN ×2 (14:24→14:42)
[2023-03-21 15:27] LABS: BASOPHILS PERCENT AUTO 0.1 % (0.0-1.0); EOSINOPHILS PERCENT AUTO 0.6 % (0.0-6.0); HEMATOCRIT 45.2 % (37.0-47.0); HEMOGLOBIN 14.9 gm/dl (12.0-16.0); IMMATURE GRAN ABSOLUTE AUTO 0.03 K/mm3 (0.00-0.05); IMMATURE GRAN PERCENT AUTO 0.4 % (0.0-0.4); LYMPHOCYTES ABSOLUTE AUTO 0.8 K/mm3 (1.0-4.8); LYMPHOCYTES PERCENT AUTO 11.5 % (24.0-44.0); MEAN CORPUSCULAR HEMOGLOBIN 29.8 pg (28.0-32.0); MEAN CORPUSCULAR VOLUME 90.4 fl (83.0-99.0); MEAN PLATELET VOLUME 10.6 fl (9.4-12.3); MONOCYTES ABSOLUTE AUTO 0.2 K/mm3 (0.0-0.8); MONOCYTES PERCENT AUTO 3.4 % (0.0-8.0); PLATELET COUNT,PLT 135 K/mm3 (150-400); WHITE BLOOD CELL COUNT,WBC 7.16 K/mm3 (3.9-11.3)
[2023-03-21 15:42] LABS: INR 0.93
[2023-03-21 15:51] LABS: ALBUMIN 3.7 g/dl (3.4-5.0); ANION GAP 16.1 (5-15); BILIRUBIN TOTAL 0.5 mg/dL (0.2-1.0); CALCIUM 9.6 mg/dL (8.5-10.1); EST CRCL DRUG DOSING (CG) 52.95 mL/min; MAGNESIUM 1.9 mg/dL (1.8-2.4); POTASSIUM,K 4.1 mEq/L (3.5-5.1); PROTEIN TOTAL,TP 7.3 g/dl (6.4-8.2)
[2023-03-21] MEDS ORDERED: Iopamidol 755 Mg/ML 100 ML Bottle IVPUSH ONE (16:29)
[2023-03-21] MEDS ORDERED: Sodium Chloride 0.9% 100 ML IV SCH (16:30)
[2023-03-21 17:05] VITALS: BP 127/83
[2023-03-21] MEDS ORDERED: Diclofenac Sodium 1% Gel 100 GM Tube TOP ONE (17:15)
== END 2023-03-21 17:30 | disposition home or self-care (01) ==
LOC: JD.ED 13:30
DX: M94.0 Chondrocostal junction syndrome [Tietze] (principal); E03.9 Hypothyroidism, unspecified; Z88.8 Allergy status to other drugs, medicaments and biological substances
CPT/HCPCS: 36415; 71046; 71275; 80053; 83735; 84484; 85025; 85379; 85610; 93005; 99285; A9270; Q9967; 93010; 99284